=== PATIENT | female | born 1995 | race Caucasian/White ===

== ENCOUNTER 2025-11-20 17:35 | Emergency (ER) | payer BC, SELFPAY ==
--- OUTSIDE RECORDS SUMMARY | 2025-11-20 17:50 | XMS_ITS | Clinical Summary ---
Author Organization [facility] Address [address] [place] [address] Care Team Providers Care Auxiliary Plant Operator Name Role Phone Destiny Cooney Primary Care Pr ovider Source Comments [facility],non-owned Affiliates and Associated Physician Practices is amultiple site organization consisting of ambulatory clinics and hospital sitesin [place], [place], [place] and [place]. This disclosure is being madepursuant to the Care Everywhere program and may not contain all information available regarding this patient. Last updated 18.[facility] Allergies No known active allergies Medications * Be aware that medications may not be up to date on this document. Alwaysverify current medications with the patient. norethin-eth estrad-fe biphas (LO LOESTRIN FE) tablet TAKE ONE (1) TABLET BY MOUTH EVERY DAY 8 Active azaTHIOprine (IMURAN) 50 MG tablet Take 100 mg by mouth 8 Active escitalopram (LEXAPRO) 10 MG tablet qd 7 Active IRON PO TAKE 1 TABLET DAILY(May substitue ANY with 1 mg of Folic Acid in it) 8 Active ustekinumab (STELARA) 90 MG/ML prefilled syringe Inject 90mg SQ every 8 weeks - [place] approved thru [employer] starting 08/17/18 thru 02/14/19 8 Active vitamin D, ergocalciferol, (DRISDOL) 27651 UNITS capsule TAKE 1 CAPSULE MONTHLY( low vitamin D level on labs from 02/18/18) 8 Active ALPRAZolam (XANAX) 0.25 MG tablet as needed. 8 Active predniSONE (DELTASONE) 10 MG tabletIndication s:Acute bronchitis, unspecified organism 5 tabs PO x 1 day, 4 tabs PO x 1 day, 3 tabs PO x 1 day, 2 tabs PO x 1 day, 1 tab PO x 1 day 15 tablet 9 Active albuterol HFA (PROVENTIL;JENS KLEVER;PROAIR) 108 (90 BASE) MCG/ACT inhalerIndicatio ns:Acute bronchitis, unspecified organism Inhale 2 puffs by mouth every 6 hours as needed for Wheezing or Cough 1 Inhaler 9 Active Social History Tobacco Use Types Packs/Day Years Used Date Smoking Tobacco: Never Assessed Comments No Sex and Gender Information Value Date Recorded Sex Assigned at Not on file 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 Gender Identity Not on file Sexual Orientation Not on file Last Filed Vital Signs Vital Sign Reading Time Taken Comments Blood Pressure 108/68 01/13/2019 12:13 PM FILM PROCESSING SUPERVISOR Pulse 93 01/13/2019 12:13 PM FILM PROCESSING SUPERVISOR Temperature 37.4 C (99.3 F) 01/13/2019 12:13 PM FILM PROCESSING SUPERVISOR Respiratory Rate 16 01/13/2019 12:13 PM FILM PROCESSING SUPERVISOR Oxygen Saturation 96% 01/13/2019 12:13 PM FILM PROCESSING SUPERVISOR Inhaled Oxygen Concentration - - Weight 61.2 kg (135 lb) 01/13/2019 12:13 PM FILM PROCESSING SUPERVISOR Height 152.4 cm (5') 01/13/2019 12:13 PM FILM PROCESSING SUPERVISOR Body Mass Index 26.37 01/13/2019 12:13 PM FILM PROCESSING SUPERVISOR Plan of Treatment Health Maintenance Due Date Last Done Comments HIV SCREENING 2011 HEPATITIS C SCREENING 09/10/2014 DTAP/TDAP/TD VACCINES (1 - Tdap) 2015 HEPATITIS B VACCINE (1 of 3 - 19+ 3-dose series) 2015 HPV VACCINE (1 - 3-dose SCDM series) 2023 DEPRESSION SCREENING 11/23/2024 COVID-19 VACCINE (1 - 2024-2 6 season) 2025 INFLUENZA VACCINE (#1) 2025 ZOSTER VACCINE (1 of 2) 2046 HIB VACCINE Aged Out No longer eligi ble based on patient's age to complete this topic MENINGOCOCCAL (Group B) VACC INE SHARED DECISION-MAKING Aged Out No longer eligibl e based on patient's age to complete this topic MENINGOCOCCAL GROUPS A/C/Y/W VACCINE Aged Out No longer eligible b ased on patient's age to complete this topic PNEUMOCOCCAL VACCINE Aged Out No long er eligible based on patient's age to complete this topic Insurance [facility] [place] [address] Care Teams Auxiliary Plant Operator Relationship Specialty Start Date End Date Destiny Cooney PA [address] [place] [id number] PCP - General Physician Motor Route Carrier 11/17/18
[2025-11-20 17:54] VITALS: BP 119/83; PULSE 117; RESP 14; TEMP 37.3; O2SAT 100
--- NOTE | 2025-11-20 18:02 | ED.URI ---
HPI - URI/Sore Throat General Chief Complaint: Upper Respiratory Infection Stated Complaint: Body Aches and Sore Throat Time Seen by Provider: 11/20/25 18:00 Source: patient, RN notes reviewed and old records reviewed Mode of arrival: ambulatory Limitations: no limitations History of Present Illness HPI Narrative: 30 year old female who presents to [facility] care with complaints of sore throat which started today and has progressively became sorer through out the day. She also reports that her ears hurt and she has body aches. Patient reports that she has not taken any OTC medications for her symptoms. Patient reports no headache pain cough or any GI symptoms. Patient is concerned that she could be contagious, she works in an out patient therapy atmosphere and is concerned MD elicited complaint: sore throat and other (ear pain and body aches.) Onset (ago): day(s) (today this morning) Consistency: constant Pain scale (0-10): 8 Able to tolerate fluids by mouth: Yes Exacerbating factors: swallowing Treatments prior to arrival: none Related Data Home Medications ?Medication ?Instructions ?Recorded ?Confirmed ?Last Taken ?Type allopurinol 100 mg tablet 100 mg PO DAILY 11/20/25 Unknown History azathioprine 50 mg tablet mg 11/20/25 Unknown History etonogestrel 68 mg subdermal 1 implant subdermal ONCE 11/20/25 Unknown History implant (Nexplanon) folic acid .ROUTE 11/20/25 Unknown History ustekinumab-ttwe 90 mg/mL mg subcut 11/20/25 Unknown History subcutaneous syringe Allergies Allergy/AdvReac Type Severity Reaction Status Date / Time sulfamethoxazole (From AdvReac Unknown Other Verified 11/20/25 18:01 Bactrim) trimethoprim (From Bactrim) AdvReac Unknown Other Verified 11/20/25 18:01 Review of Systems Review of Systems: CONSTITUTIONAL: reports malaise,no chills, sweats, or fever. EYES: Denies visual changes, redness, or discharge. ENT: Reports rhinorrhea, congestion, no sinus pain,+ otalgia and+ sore throat. CARDIOVASCULAR: Denies chest pain, palpitations, or edema. RESPIRATORY: Reports cough.? Denies dyspnea. GASTROINTESTINAL: Denies abdominal pain, nausea, vomiting, diarrhea SKIN: Denies rash or itching. MUSCULOSKELETAL: positive for myalgia. NEUROLOGIC: Denies headache. All systems reviewed & are unremarkable except as noted in HPI and below PMFSH Past Medical History Medical History (Updated 11/20/25 @ 18:35 by Jessie Buckner APRN) Hx of Crohn's disease Social History Social History (Updated 11/20/25 @ 18:35 by Jessie Buckner APRN) Smoking status: Never smoker Alcohol intake: current Alcohol use details: rare social Substance use type: does not use Comments At time of signature, agree with nursing past medical, surgical, social and family history. There is no relevant family history pertinent to the presenting complaint Exam Narrative: GENERAL: Well-appearing, well-nourished, and in no acute distress. HEAD: Normocephalic EYES: PERRLA, conjunctivae clear ENT: Nares clear, turbinates edematous and erythematous, clear discharge. Mucous membranes moist. Left TM red and bulging,Right TM pearly brown with dull light reflex ; no tragal tenderness. Oropharynx erythematous without lesions. Tonsils red and mildly enlarged and without exudate, no drooling, no hoarseness, no trismus, uvula midline, post nasal drainage. NECK: Supple. No lymphadenopathy CHEST: Clear to auscultation, breath sounds equal. No wheezing, rhonchi, rales, or stridor. No respiratory distress, speaks in full sentences. HEART: Regular rate and rhythm. No murmur heard. SKIN: Warm, dry, no rash. NEURO: Alert and oriented x3. PSYCH: Normal mood and affect Course Course Level of Care: Express Care Visit Vital Signs Vital signs: Vital Signs Temperature 37.3 C 11/20/25 17:54 Pulse Rate 117 H 11/20/25 17:54 Respiratory Rate 14 11/20/25 17:54 Blood Pressure 119/83 11/20/25 17:54 Pulse Oximetry 100 11/20/25 17:54 Oxygen Delivery Room Air 11/20/25 17:54 Temperature 37.3 C 11/20/25 17:54 Pulse Rate 117 H 11/20/25 17:54 Respiratory Rate 14 11/20/25 17:54 Blood Pressure 119/83 11/20/25 17:54 Pulse Oximetry 100 11/20/25 17:54 Oxygen Delivery Room Air 11/20/25 17:54 reviewed MDM MDM Narrative Medical decision making narrative: 30 year old female presents to clinic with complaints of sore throat ear pain and body aches today and is concerned that she is contagious and wants testing . All testing negative and strep culture is negative. Patient has nasal congestion with some drainage with throat red and tonsils with mild swelling and is positive for otitis media to her left ear. Supportive care recommended and RX of Augment called to her pharmacy. Anticipatory guidance and reasons to seek care in ED reviewed with understanding voiced. Differential Diagnosis Differential Diagnosis: Differential diagnostic considerations for upper respiratory infection include upper respiratory infection, croup, otitis media, sinusitis, viral infection, bronchitis, influenza, pharyngitis, strep, uvulitis.? Critical Care Time Critical Care Time Critical Care Time: No Discharge Plan Discharge Clinical Impression: Otitis media Qualifiers: Otitis media type: serous Chronicity: acute Laterality: left Recurrence: not specified as recurrent Qualified Code(s): H65.02 - Acute serous otitis media, left ear Pharyngitis Qualifiers: Pharyngitis/tonsillitis etiology: unspecified etiology Qualified Code(s): J02.9 - Acute pharyngitis, unspecified Patient Disposition: Home Condition: Stable Instructions: Antibiotic Form, Ear Infection (GEN) Additional Instructions: Increase fluids especially juices and water [id number] cough and cold medicine of your choice for your symptoms Robitussin or Delsym cough syrup Zyrtec Claritin or Alesha daily include plain Sudafed heat to the face 20-30 minutes 4-6 times a day for pain Salt water gargles, throat lozenges or throat sprays as desired Antibiotic as directed--finished the medication Tylenol or ibuprofen for any fever pain per package instructions Covid, Influenza and strep negative. If your symptoms persist, change or worsen significantly before you can contact your personal physician then please, without delay, go to the emergency department for further evaluation. Follow-up with PCP in 7-10 days or sooner if needed Patient Language: Samoan Prescriptions: New amoxicillin-pot clavulanate 875-125 mg tablet 1 tablet PO Q12H Qty: 20 0RF Rx Instructions: take with food recommend taking a probiotic or eating Activia yogurt while on this medication No Action azathioprine 50 mg tablet ustekinumab-ttwe 90 mg/mL syringe SUBCUT Nexplanon 68 mg implant 1 implant subdermal ONCE Rx Instructions: as a single dose allopurinol 100 mg tablet 100 mg PO DAILY folic acid .ROUTE Follow-up/Referrals: Muna Callaway [Other] Time of Disposition: 18:17 Quality [place] Coma Scale Eyes: Open Verbal: Oriented and Alert Motor: Follows Commands [place] Coma Total Score: 15
[2025-11-20 18:31] LABS: EDCOVIDSCREEN Negative (Negative); EDINFLUASCREEN Negative (Negative); EDINFLUBSCREEN Negative (Negative); EDSTREPNEGPOS1 Negative (Negative)
== END 2025-11-20 18:20 | disposition home or self-care (01) ==
PROVIDERS: Emergency Provider Registered Nurse
DX: H65.02 Acute serous otitis media, left ear (principal); J02.9 Acute pharyngitis, unspecified; Z79.899 Other long term (current) drug therapy; Z20.822 Contact with and (suspected) exposure to COVID-19
CPT/HCPCS: 87081; 87426; 87804; 87880; 99203; G0463